=== PATIENT | female | born 1990 | race Caucasian/White ===

== ENCOUNTER 2016-05-15 06:39 | Day surgery (SDC) | payer OTHER, MEDICAID ==
[~2016-05-15] VITALS: Ht 162.6 cm; Wt 93.9 kg
[2016-05-15] MEDS ORDERED: XANAX1 MG PO (07:22)
[2016-05-15 07:35] VITALS: BP 101/57; Ht 162.6 cm; Wt 93.9 kg
[2016-05-15 08:18] LABS: HCG URINE NEGATIVE (NEGATIVE)
[2016-05-15 09:02] LABS: HEMOGLOBIN 12.9 g/dL (12-16); MCH 29.8 pg (26.0-34.0); MCHC 33.1 g/dL (31.0-37.0); MCV 90.1 fL (80.0-100.0); MEAN PLATELET VOLUME 9.8 fL (7.4-10.4); RBC 4.33 10x6/uL (4.00-5.40); RDW 12.6 % (11.5-14.5); WBC 7.3 10x3/uL (4.8-10.8)
[2016-05-15] MEDS ORDERED: HYDROCODONE-APA1 TAB PO (10:52)
--- NOTE | 2016-05-15 12:50 | NUR ---
DISCHARGE INSTRUCTIONS AND RX GIVEN, VOICED UNDERSTANDING. DISCHARGED HOME VIA WC.
--- NOTE | 2016-05-15 16:25 | OP ---
PATIENT NAME: MAMADOU OSORIO MEDICAL RECORD: [id number] :92 LOCATION:D.OPS ADMISSION DATE: SURGEON: CHAPIN SANTOS MD DATE OF OPERATION: 05/15/2016 PREOPERATIVE DIAGNOSES: 1. Gallstones. 2. Kidney stones. 3. Tobacco dependence syndrome. POSTOPERATIVE DIAGNOSES: 1. Gallstones. 2. Kidney stones. 3. Tobacco dependence syndrome. PROCEDURE: Laparoscopic cholecystectomy. SURGEON: Chapin Santos MD REPORT OF PROCEDURE: The patient's abdomen was prepped and draped in a sterile fashion. A cutdown was made on the superior aspect of the umbilicus, 0 Vicryls were placed in the fascia bilaterally and the fascia was incised with 15-blade. I then bluntly entered the peritoneal cavity and placed a 12-mm Wily port. Under direct visualization, a 5 mm trocar was placed in the epigastrium and 2 more 5-mm trocars were placed in the right subcostal region. The gallbladder was grasped and elevated. There was no sign of any inflammatory changes. The cystic artery and cystic duct were dissected free and these were clipped proximally and distally and ligated in standard fashion. The gallbladder was taken off the liver bed using electrocautery and placed in the right upper quadrant. Any bleeding from the liver bed was then treated with electrocautery. At this point, the ports and insufflation were then removed and the gallbladder was taken out through the umbilicus. The umbilical fascia was closed with interrupted 0 Vicryls times 3. The wounds were then irrigated out with normal saline and infused with 10 mL of 0.25% Marcaine with epinephrine. The skin incisions were all closed with subcutaneous 5-0 Monocryl and dressed appropriately. COMPLICATIONS: None. CONDITION: Stable. ANESTHESIA: General endotracheal and local. BLOOD LOSS: Minimal. TRANSINT:[id number] Voice Confirmation ID: [id number] DOCUMENT ID: [id number] OPERATIVE REPORT [id number] MAMADOU OSORIO CHRISTIAN MD at 1625 CC: HIREN WOMACK DO [id number] DICTATION DATE: 05/15/16 1056 EXERCISE EQUIPMENT REPAIR TECHNICIAN: 05/15/16 1607 [facility] 05/15/16 [place] [id number] [place] [id number]
== END 2016-05-15 12:50 | disposition home or self-care (01) ==
LOC: D.OPS 06:39
PROVIDERS: Anesthesiology; Surgery
DX: K80.20 Calculus of gallbladder without cholecystitis without obstruction (principal); N20.0 Calculus of kidney; F17.200 Nicotine dependence, unspecified, uncomplicated

== ENCOUNTER → 2016-07-31 19:39 | Outpatient (CLI) | payer OTHER, MEDICAID ==
[2016-05-15 07:35] VITALS: BMI 35.6
[~2016-07-31 19:39] MED LIST: HYDROCODONE-APA1 TAB PO; XANAX1 MG PO
== END | disposition home or self-care (01) ==
LOC: D.LABREF 19:39
DX: Z12.4 Encounter for screening for malignant neoplasm of cervix (principal)

== ENCOUNTER → 2016-08-03 09:07 | Outpatient (CLI) | payer OTHER, MEDICAID ==
[2016-05-15 07:35] VITALS: BMI 35.6
== END | disposition home or self-care (01) ==
LOC: D.LABREF 09:07
DX: Z12.4 Encounter for screening for malignant neoplasm of cervix (principal)

== ENCOUNTER → 2016-08-11 08:32 | Outpatient (CLI) | payer OTHER, MEDICAID ==
[2016-05-15 07:35] VITALS: BMI 35.6
== END | disposition home or self-care (01) ==
LOC: D.US 08:32
DX: N85.2 Hypertrophy of uterus (principal); N63 Unspecified lump in breast

== ENCOUNTER → 2016-09-02 18:39 | Outpatient (CLI) | payer OTHER, BC ==
[2016-05-15 07:35] VITALS: BMI 35.6
== END | disposition home or self-care (01) ==
LOC: D.LABREF 18:39
DX: Z32.01 Encounter for pregnancy test, result positive (principal)

== ENCOUNTER 2016-09-21 14:54 | Emergency (ER) | payer MEDICAID ==
[2016-05-15 07:35] VITALS: BMI 35.6
[2016-09-21 16:24] LABS: BASOPHILS 0.2 % (0-2); EOSINOPHILS 1.4 % (0-7); HEMATOCRIT 44.3 % (36.0-48.0); HEMOGLOBIN 14.8 g/dL (12-16); IMMATURE GRANULOCYTES 0.2 % (0-5); LYMPHOCYTES 24.2 % (15-50); MCH 30.3 pg (26.0-34.0); MCHC 33.4 g/dL (31.0-37.0); MCV 90.6 fL (80.0-100.0); MEAN PLATELET VOLUME 9.7 fL (7.4-10.4); PLATELET COUNT 397 10x3/uL (130-400); RBC 4.89 10x6/uL (4.00-5.40); RDW 12.9 % (11.5-14.5); WBC 9.8 10x3/uL (4.8-10.8)
[2016-09-21 16:38] LABS: APPEARANCE HAZY (CLEAR); BILIRUBIN NEGATIVE (NEGATIVE); COLOR YELLOW (YELLOW); GLUCOSE NEGATIVE (NEGATIVE); KETONE NEGATIVE (NEGATIVE); LEUKOCYTE ESTERASE TRACE (NEGATIVE); NITRITE NEGATIVE (NEGATIVE); PROTEIN NEGATIVE (NEGATIVE); UROBILINOGEN NORMAL (NORMAL)
[2016-09-21 16:39] LABS: BACTERIA FEW /hpf (NONE SEEN); EPITHELIAL CELLS 0-5 /hpf (0-5); RED CELLS - URINE OCC /hpf (0-5); WHITE CELLS - URINE 0-5 /hpf (0-5)
[2016-09-21 16:53] LABS: HCG SERUM NEGATIVE (NEGATIVE)
== END 2016-09-21 19:18 | disposition home or self-care (01) ==
LOC: D.ER 14:54
PROVIDERS: Emergency Medicine
DX: O26.91 Pregnancy related conditions, unspecified, first trimester (principal); N36.8 Other specified disorders of urethra; R10.9 Unspecified abdominal pain

== ENCOUNTER 2017-01-03 00:42 | Emergency (ER) | payer SELFPAY ==
[2016-05-15 07:35] VITALS: BMI 35.6
[2017-01-03 01:13] LABS: BASOPHILS 0.3 % (0-2); EOSINOPHILS 3.3 % (0-7); HEMATOCRIT 39.2 % (36.0-48.0); HEMOGLOBIN 13.4 g/dL (12-16); IMMATURE GRANULOCYTES 0.3 % (0-5); LYMPHOCYTES 45.9 % (15-50); MCH 30.9 pg (26.0-34.0); MCHC 34.2 g/dL (31.0-37.0); MCV 90.5 fL (80.0-100.0); MEAN PLATELET VOLUME 9.5 fL (7.4-10.4); MONOCYTES 6.3 % (2-11); NEUTROPHILS 43.9 % (40-80); PLATELET COUNT 363 10x3/uL (130-400); RBC 4.33 10x6/uL (4.00-5.40); RDW 12.8 % (11.5-14.5); WBC 7.4 10x3/uL (4.8-10.8)
[2017-01-03 01:33] LABS: ALBUMIN 3.2 g/dL (3.4-5.0); ALKALINE PHOSPHATASE 67 U/L (46-116); ALT (SGPT) 20 U/L (10-68); BILIRUBIN - TOTAL 0.09 mg/dL (0.2-1.3); CALC OSMOLALITY 271 mosm/kg (275-300); CALCIUM 8.2 mg/dL (8.5-10.1); CARBON DIOXIDE 24.5 mmol/L (21.0-32.0); CHLORIDE - SERUM 106 mmol/L (98-107); CREATININE - SERUM 0.8 mg/dL (0.6-1.3); GLUCOSE 90 mg/dL (74-106); POTASSIUM - SERUM 3.7 mmol/L (3.5-5.1); PROTEIN - SERUM 6.5 g/dL (6.4-8.2); SODIUM 137 mmol/L (136-145); UREA NITROGEN 8 mg/dL (7-18); eGFR NON AFRICAN AMERICAN > 90 mL/min (90-120)
[2017-01-03 01:38] LABS: THYROID STIMULATING HORMONE 1.66 uIU/mL (0.36-3.74)
[2017-01-03 01:39] LABS: C-REACTIVE PROTEIN 0.2 mg/dL (0.0-0.9)
[2017-01-03 01:52] LABS: HCG URINE NEGATIVE (NEGATIVE)
[2017-01-03 01:56] LABS: APPEARANCE HAZY (CLEAR); COLOR YELLOW (YELLOW)
[2017-01-03 01:57] LABS: BACTERIA NONE SEEN /hpf (NONE SEEN); BILIRUBIN NEGATIVE (NEGATIVE); GLUCOSE NEGATIVE (NEGATIVE); KETONE NEGATIVE (NEGATIVE); LEUKOCYTE ESTERASE TRACE (NEGATIVE); NITRITE NEGATIVE (NEGATIVE); PROTEIN NEGATIVE (NEGATIVE); RED CELLS - URINE NONE SEEN /hpf (0-5); UDS - AMPHET NEGATIVE QUAL (NEGATIVE); UDS - BARB NEGATIVE QUAL (NEGATIVE); UDS - BENZO NEGATIVE QUAL (NEGATIVE); UDS - COCAINE NEGATIVE QUAL (NEGATIVE); UDS - METH NEGATIVE QUAL (NEGATIVE); UDS - OPIATE POSITIVE QUAL (NEGATIVE); UDS - PCP NEGATIVE QUAL (NEGATIVE); UDS - THC POSITIVE QUAL (NEGATIVE); UROBILINOGEN NORMAL (NORMAL)
== END 2017-01-03 02:50 | disposition home or self-care (01) ==
LOC: D.ER 00:42
PROVIDERS: Family Medicine
DX: R42 Dizziness and giddiness (principal)

== ENCOUNTER 2017-03-06 09:41 | Emergency (ER) | payer OTHER, MEDICAID ==
[2016-05-15 07:35] VITALS: BMI 35.6
[2017-04-23] MEDS ORDERED: PROZAC20 MG PO (11:34)
== END 2017-03-06 12:28 | disposition home or self-care (01) ==
LOC: D.ER 09:41
DX: J02.9 Acute pharyngitis, unspecified (principal); J20.9 Acute bronchitis, unspecified; F98.8 Other specified behavioral and emotional disorders with onset usually occurring in childhood and adolescence

== ENCOUNTER 2017-04-17 03:26 | Emergency (ER) | payer OTHER, BC ==
[2016-05-15 07:35] VITALS: BMI 35.6
[2017-04-17 04:13] LABS: BASOPHILS 0.2 % (0-2); HEMATOCRIT 42.7 % (36.0-48.0); HEMOGLOBIN 14.8 g/dL (12-16); IMMATURE GRANULOCYTES 0.2 % (0-5); LYMPHOCYTES 24.4 % (15-50); MCH 30.5 pg (26.0-34.0); MCHC 34.7 g/dL (31.0-37.0); MEAN PLATELET VOLUME 9.7 fL (7.4-10.4); MONOCYTES 6.1 % (2-11); NEUTROPHILS 68.1 % (40-80); PLATELET COUNT 468 10x3/uL (130-400); RBC 4.85 10x6/uL (4.00-5.40); RDW 12.7 % (11.5-14.5); WBC 13.5 10x3/uL (4.8-10.8)
[2017-04-17 04:21] LABS: ALBUMIN 4.3 g/dL (3.4-5.0); ALKALINE PHOSPHATASE 78 U/L (46-116); ALT (SGPT) 20 U/L (10-68); BILIRUBIN - TOTAL 0.34 mg/dL (0.2-1.3); CALC OSMOLALITY 280 mosm/kg (275-300); CALCIUM 9.6 mg/dL (8.5-10.1); CHLORIDE - SERUM 101 mmol/L (98-107); CREATININE - SERUM 0.9 mg/dL (0.6-1.3); LIPASE 170 U/L (73-393); POTASSIUM - SERUM 3.2 mmol/L (3.5-5.1); SODIUM 141 mmol/L (136-145); UREA NITROGEN 8 mg/dL (7-18); eGFR NON AFRICAN AMERICAN 81 mL/min (90-120)
[2017-04-17 04:28] LABS: GLUCOSE 139 mg/dL (74-106)
[2017-04-17 04:31] LABS: APPEARANCE HAZY (CLEAR); BILIRUBIN NEGATIVE (NEGATIVE); COLOR BROWN (YELLOW); GLUCOSE NEGATIVE (NEGATIVE); HCG URINE NEGATIVE (NEGATIVE); KETONE SMALL mg/dL (NEGATIVE); NITRITE NEGATIVE (NEGATIVE); PROTEIN TRACE mg/dL (NEGATIVE); SPECIFIC GRAVITY 1.015 (1.005-1.020); UROBILINOGEN NORMAL (NORMAL)
[2017-04-17 04:32] LABS: BACTERIA NONE SEEN /hpf (NONE SEEN); EPITHELIAL CELLS RARE /hpf (0-5); RED CELLS - URINE >50 /hpf (0-5); WHITE CELLS - URINE NSEEN /hpf (0-5)
[2017-04-23] MEDS ORDERED: PROZAC20 MG PO (11:34)
== END 2017-04-17 05:40 | disposition home or self-care (01) ==
LOC: D.ER 03:26
PROVIDERS: Family Medicine
DX: N20.1 Calculus of ureter (principal)

== ENCOUNTER 2017-04-26 05:52 | Day surgery (SDC) | payer OTHER, BC ==
[2017-04-23 12:05] LABS: BASOPHILS 0.3 % (0-2); EOSINOPHILS 1.3 % (0-7); HEMATOCRIT 42.9 % (36.0-48.0); HEMOGLOBIN 14.6 g/dL (12-16); LYMPHOCYTES 26.2 % (15-50); MCH 30.6 pg (26.0-34.0); MCV 89.9 fL (80.0-100.0); MEAN PLATELET VOLUME 9.7 fL (7.4-10.4); NEUTROPHILS 63.2 % (40-80); PLATELET COUNT 463 10x3/uL (130-400); RBC 4.77 10x6/uL (4.00-5.40); RDW 13.1 % (11.5-14.5); WBC 6.2 10x3/uL (4.8-10.8)
[~2017-04-26] VITALS: Ht 162.6 cm; Wt 92.5 kg
--- NOTE | ~2017-04-26 | OP ---
PATIENT NAME: MAMADOU OSORIO MEDICAL RECORD: [id number] :92 LOCATION:D.OPS ADMISSION DATE: SURGEON: BRIELLE MAGAÑA MD DATE OF OPERATION: 04/26/2017 PREOPERATIVE DIAGNOSIS: Pelvic pain. POSTOPERATIVE DIAGNOSES: 1. Pelvic pain. 2. Pelvic adhesive disease. 3. Left ovarian cyst. PROCEDURES: 1. Diagnostic laparoscopy. 2. Cystectomy. SURGEON: Brielle Magaña MD ANESTHESIOLOGIST: Dr. Tammy XIONG. ANESTHETIC: IV general. FINDINGS: A 4-cm hemorrhagic cyst noted on the left ovary. Tubes are unremarkable. The uterus is unremarkable. There are adhesions in the posterior cul-de-sac. No obvious signs of an active endometriosis is encountered. SPECIMENS REMOVED: Cyst wall. SPECIMEN DISPOSITION: Pathology. FLUIDS: 1600 cc of lactated Ringer's. URINE OUTPUT: Quantity sufficient void prior to the procedure. ESTIMATED BLOOD LOSS: Less than or equal to 50 mL. COMPLICATIONS: None. DRAINS: None. INDICATIONS: The patient is a 26-year-old female with pelvic pain and dyspareunia. The patient is consented for diagnostic laparoscopy after having failed conservative management. DESCRIPTION OF PROCEDURE: After informed consent was assured, the patient was taken to the operating room where anesthetic was obtained. The patient was prepped and draped in usual sterile fashion. An incision was made in the umbilicus and a 5-mm trocar was inserted. Pneumoperitoneum was now developed. Accessory ports were placed in the midline and right lower quadrant. Blunt probe was used to sweep the bowel free the pelvis with the above findings. A monopolar Bovie cautery hook was inserted and the capsule incised. Using graspers, the cyst wall was extracted. With persistent bleeding along the edges of the cyst wall, bipolar paddles on a Myxer Gyrus was used to obtain hemostasis here. After copiously irrigating the pelvis, irrigant removed and the surgical sites inspected and found to be hemostatic. Interceed was placed OPERATIVE REPORT [id number] MAMADOU OSORIO over the operative field. Pneumoperitoneum was now released and the accessory trocars were removed under direct visualization. Primary trocar was now removed. All skin sites were closed with the Monocryl stitch and Dermabond applied. Sponge, lap, and needle count is correct times 2. The patient went to recovery room in stable condition. TRANSINT:[id number] Voice Confirmation ID: [id number] DOCUMENT ID: [id number] BRIELLE MAGAÑA MD at 0034 CC: [id number] DICTATION DATE: 04/26/17924 DRUM CLEANER: 04/26/17 1359 [facility] 04/26/17 [place] [id number] [place] [id number]
[~2017-04-26 05:52] MED LIST changes: +PROZAC20 MG PO
[2017-04-26 06:57] VITALS: BP 116/61; Ht 162.6 cm; Wt 92.5 kg
[2017-04-26 07:14] LABS: HCG URINE NEGATIVE (NEGATIVE)
== END 2017-04-26 11:34 | disposition home or self-care (01) ==
LOC: D.OPS 05:52 → D.PAN 08:15 → D.OPS 11:34
PROVIDERS: Obstetrics & Gynecology
DX: N94.10 Unspecified dyspareunia (principal); R10.2 Pelvic and perineal pain; F17.200 Nicotine dependence, unspecified, uncomplicated; E66.9 Obesity, unspecified; Z68.35 Body mass index [BMI] 35.0-35.9, adult; Z01.812 Encounter for preprocedural laboratory examination

== ENCOUNTER 2018-04-01 12:34 | Emergency (ER) | payer OTHER ==
[~2018-04-01] VITALS: Ht 162.6 cm; Wt 96.8 kg
[2018-04-01 12:45] VITALS: Ht 162.6 cm; Wt 96.8 kg
[2018-04-01 13:37] LABS: APPEARANCE CLEAR (CLEAR); BASOPHILS 0.2 % (0-2); COLOR YELLOW (YELLOW); EOSINOPHILS 1.3 % (0-7); HEMATOCRIT 36.3 % (36.0-48.0); HEMOGLOBIN 12.7 g/dL (12-16); IMMATURE GRANULOCYTES 0.1 % (0-5); LYMPHOCYTES 25.9 % (15-50); MCH 30.5 pg (26.0-34.0); MCV 87.3 fL (80.0-100.0); MEAN PLATELET VOLUME 9.8 fL (7.4-10.4); MONOCYTES 5.9 % (2-11); NEUTROPHILS 66.6 % (40-80); NITRITE NEGATIVE (NEGATIVE); PH 6.5 (5.0-6.0); PLATELET COUNT 386 10x3/uL (130-400); RBC 4.16 10x6/uL (4.00-5.40); RDW 12.4 % (11.5-14.5); SPECIFIC GRAVITY 1.015 (1.005-1.020); WBC 8.8 10x3/uL (4.8-10.8)
[2018-04-01 13:38] LABS: BILIRUBIN NEGATIVE (NEGATIVE); GLUCOSE NEGATIVE (NEGATIVE); KETONE NEGATIVE (NEGATIVE); PROTEIN NEGATIVE (NEGATIVE); UROBILINOGEN NORMAL (NORMAL)
[2018-04-01 13:48] LABS: AMORPHOUS SEDIMENT <1+ /lpf (NONE SEEN); BACTERIA FEW /hpf (NONE SEEN); EPITHELIAL CELLS 0-5 /hpf (0-5); HYALINE CAST RARE /lpf (NONE SEEN); MUCUS <1+ /lpf (NONE SEEN); RED CELLS - URINE 0-5 /hpf (0-5); WHITE CELLS - URINE 0-5 /hpf (0-5)
[2018-04-01 13:50] LABS: HCG SERUM POSITIVE (NEGATIVE)
[2018-04-01 13:55] LABS: ALBUMIN 3.3 g/dL (3.4-5.0); ALKALINE PHOSPHATASE 63 U/L (46-116); ALT (SGPT) 26 U/L (10-68); BILIRUBIN - TOTAL 0.21 mg/dL (0.2-1.3); CALC OSMOLALITY 275 mosm/kg (275-300); CALCIUM 9.3 mg/dL (8.5-10.1); CARBON DIOXIDE 24.9 mmol/L (21.0-32.0); CHLORIDE - SERUM 102 mmol/L (98-107); CREATININE - SERUM 0.6 mg/dL (0.6-1.3); GLUCOSE 97 mg/dL (74-106); POTASSIUM - SERUM 3.3 mmol/L (3.5-5.1); PROTEIN - SERUM 7.5 g/dL (6.4-8.2); SODIUM 139 mmol/L (136-145); UREA NITROGEN 6 mg/dL (7-18); eGFR NON AFRICAN AMERICAN > 90 mL/min (90-120)
[2018-04-01 14:16] LABS: HCG - QUANTITATIVE (MATERNAL) 14515 mIU/mL
[2018-04-01 15:06] VITALS: BP 128/070
== END 2018-04-01 15:07 | disposition home or self-care (01) ==
LOC: D.ER 12:34
PROVIDERS: Family Medicine
DX: O26.891 Other specified pregnancy related conditions, first trimester (principal); Z3A.15 15 weeks gestation of pregnancy; R10.30 Lower abdominal pain, unspecified; N89.8 Other specified noninflammatory disorders of vagina; F17.200 Nicotine dependence, unspecified, uncomplicated

== ENCOUNTER → 2018-06-07 15:32 | Outpatient (CLI) | payer OTHER ==
[2018-04-01 12:45] VITALS: BMI 36.6
[2018-06-07 16:15] LABS: BASOPHILS 0.1 % (0-2); EOSINOPHILS 0.5 % (0-7); HEMATOCRIT 34.5 % (36.0-48.0); HEMOGLOBIN 11.9 g/dL (12-16); IMMATURE GRANULOCYTES 0.2 % (0-5); LYMPHOCYTES 20.1 % (15-50); MCHC 34.5 g/dL (31.0-37.0); MCV 89.8 fL (80.0-100.0); MEAN PLATELET VOLUME 10.1 fL (7.4-10.4); MONOCYTES 4.2 % (2-11); NEUTROPHILS 74.9 % (40-80); PLATELET COUNT 376 10x3/uL (130-400); RBC 3.84 10x6/uL (4.00-5.40); RDW 12.3 % (11.5-14.5); WBC 10.4 10x3/uL (4.8-10.8)
[2018-06-07 16:23] LABS: FIBRINOGEN 468 mg/dL (239-481)
[2018-06-07 16:24] LABS: APTT 33.6 SECONDS (22.8-39.4); D-DIMER-QUANTITATIVE < 0.27 ug/mLFEU (0.20-0.54); INR 1.02 (0.85-1.17); PROTIME 12.9 SECONDS (11.6-15.0)
== END | disposition home or self-care (01) ==
LOC: D.LDO 15:32
PROVIDERS: ATTEND Obstetrics & Gynecology
DX: O26.892 Other specified pregnancy related conditions, second trimester (principal); Z3A.23 23 weeks gestation of pregnancy

== ENCOUNTER → 2018-07-11 01:08 | Outpatient (CLI) | payer OTHER, MEDICAID ==
[2018-04-01 12:45] VITALS: BMI 36.6
[~2018-07-11 01:08] MED LIST changes: +PRENAVITE1 TAB PO
[2018-07-13 21:07] LABS: CHLAMYDIA TRACHOMATIS, NAA Negative (Negative)
== END | disposition home or self-care (01) ==
LOC: D.LDO 01:08
PROVIDERS: ATTEND Obstetrics & Gynecology
DX: O26.893 Other specified pregnancy related conditions, third trimester (principal); Z3A.28 28 weeks gestation of pregnancy; N89.8 Other specified noninflammatory disorders of vagina

== ENCOUNTER → 2018-07-14 10:28 | Outpatient (CLI) | payer OTHER ==
[2018-04-01 12:45] VITALS: BMI 36.6
[2018-07-14 14:15] LABS: APPEARANCE CLOUDY (CLEAR); BILIRUBIN NEGATIVE (NEGATIVE); COLOR YELLOW (YELLOW); GLUCOSE NEGATIVE (NEGATIVE); KETONE NEGATIVE (NEGATIVE); NITRITE NEGATIVE (NEGATIVE); PROTEIN TRACE mg/dL (NEGATIVE); SPECIFIC GRAVITY 1.015 (1.005-1.020); UROBILINOGEN NORMAL (NORMAL)
[2018-07-14 14:17] LABS: BACTERIA MODERATE /hpf (NONE SEEN); MUCUS >1+ /lpf (NONE SEEN); RED CELLS - URINE >50 /hpf (0-5); WHITE CELLS - URINE 0-5 /hpf (0-5)
== END | disposition home or self-care (01) ==
LOC: D.LDO 10:28
PROVIDERS: Obstetrics & Gynecology; ATTEND Obstetrics & Gynecology
DX: O26.899 Other specified pregnancy related conditions, unspecified trimester (principal); Z3A.00 Weeks of gestation of pregnancy not specified

== ENCOUNTER → 2018-07-25 14:49 | Outpatient (CLI) | payer OTHER ==
[2018-04-01 12:45] VITALS: BMI 36.6
[~2018-07-25 14:49] MED LIST changes: +PERCOCET 5-3251 TAB PO
== END | disposition home or self-care (01) ==
LOC: D.LDO 14:49
PROVIDERS: ATTEND Obstetrics & Gynecology
DX: O26.899 Other specified pregnancy related conditions, unspecified trimester (principal); M79.89 Other specified soft tissue disorders

== ENCOUNTER 2018-08-08 18:57 | Outpatient (CLI) | payer OTHER ==
[~2018-08-08 18:57] MED LIST changes: -PERCOCET 5-3251 TAB PO
[2018-08-08 20:45] LABS: APPEARANCE TURBID (CLEAR); BILIRUBIN NEGATIVE (NEGATIVE); COLOR RED (YELLOW); GLUCOSE NEGATIVE (NEGATIVE); KETONE NEGATIVE (NEGATIVE); NITRITE NEGATIVE (NEGATIVE); PROTEIN 1+ mg/dL (NEGATIVE); SPECIFIC GRAVITY 1.015 (1.005-1.020); UROBILINOGEN NORMAL (NORMAL)
[2018-08-08 20:46] LABS: EPITHELIAL CELLS 0-5 /hpf (0-5); RED CELLS - URINE >50 /hpf (0-5); WHITE CELLS - URINE OCC /hpf (0-5)
[2018-08-08 20:47] LABS: BACTERIA FEW /hpf (NONE SEEN)
[2018-08-08 22:07] LABS: BASOPHILS 0.1 % (0-2); EOSINOPHILS 0.4 % (0-7); HEMATOCRIT 30.1 % (36.0-48.0); HEMOGLOBIN 10.1 g/dL (12-16); IMMATURE GRANULOCYTES 0.2 % (0-5); LYMPHOCYTES 13.6 % (15-50); MCH 29.1 pg (26.0-34.0); MCHC 33.6 g/dL (31.0-37.0); MCV 86.7 fL (80.0-100.0); MEAN PLATELET VOLUME 10.8 fL (7.4-10.4); MONOCYTES 5.5 % (2-11); NEUTROPHILS 80.2 % (40-80); PLATELET COUNT 357 10x3/uL (130-400); RBC 3.47 10x6/uL (4.00-5.40); WBC 11.5 10x3/uL (4.8-10.8)
[2018-08-11] MEDS ORDERED: PERCOCET 5-3251 TAB PO (17:21)
[2018-08-25] MEDS ORDERED: CELEXA20 MG PO (17:10)
== END 2018-08-09 07:14 | disposition home or self-care (01) ==
LOC: D.LABREF 18:57 → D.LD 23:08
PROVIDERS: Obstetrics & Gynecology
DX: O26.893 Other specified pregnancy related conditions, third trimester (principal); Z3A.32 32 weeks gestation of pregnancy; R31.9 Hematuria, unspecified

== ENCOUNTER → 2018-08-11 13:18 | Outpatient (CLI) | payer OTHER ==
[2018-04-01 12:45] VITALS: BMI 36.6
[~2018-08-11 13:18] MED LIST changes: +PERCOCET 5-3251 TAB PO
== END | disposition home or self-care (01) ==
LOC: D.LDO 13:18
PROVIDERS: ATTEND Obstetrics & Gynecology
DX: O26.893 Other specified pregnancy related conditions, third trimester (principal); N20.0 Calculus of kidney

== ENCOUNTER → 2018-08-25 16:00 | Outpatient (CLI) | payer OTHER ==
[2018-04-01 12:45] VITALS: BMI 36.6
[~2018-08-25 16:00] MED LIST changes: +CELEXA20 MG PO
[2018-08-25 17:51] LABS: APPEARANCE HAZY (CLEAR); BILIRUBIN NEGATIVE (NEGATIVE); COLOR YELLOW (YELLOW); GLUCOSE NEGATIVE (NEGATIVE); KETONE SMALL mg/dL (NEGATIVE); NITRITE NEGATIVE (NEGATIVE); PROTEIN NEGATIVE (NEGATIVE); UROBILINOGEN NORMAL (NORMAL)
[2018-08-25 17:52] LABS: RED CELLS - URINE 0-5 /hpf (0-5); WHITE CELLS - URINE OCC /hpf (0-5)
[2018-08-25 17:53] LABS: AMORPHOUS SEDIMENT <1+ /lpf (NONE SEEN); BACTERIA FEW /hpf (NONE SEEN); EPITHELIAL CELLS 0-5 /hpf (0-5)
== END | disposition home or self-care (01) ==
LOC: D.LDO 16:00
PROVIDERS: ATTEND Obstetrics & Gynecology
DX: O26.899 Other specified pregnancy related conditions, unspecified trimester (principal); Z3A.00 Weeks of gestation of pregnancy not specified

== ENCOUNTER → 2018-09-10 20:47 | Outpatient (CLI) | payer OTHER | END | disposition home or self-care (01) | LOC: D.LDO 20:47 | DX: O26.893 Other specified pregnancy related conditions, third trimester (principal); Z3A.37 37 weeks gestation of pregnancy; R42 Dizziness and giddiness ==

== ENCOUNTER → 2018-09-13 13:39 | Outpatient (CLI) | payer OTHER ==
[2018-04-01 12:45] VITALS: BMI 36.6
[~2018-09-13 13:39] MED LIST changes: +HYDROCODON-ACE1 EAC7 PO; +IBUPROFEN800 MG PO; +MOTRIN600 MG PO
[2018-09-13 15:15] LABS: APPEARANCE HAZY (CLEAR); BILIRUBIN NEGATIVE (NEGATIVE); COLOR YELLOW (YELLOW); GLUCOSE NEGATIVE (NEGATIVE); KETONE NEGATIVE (NEGATIVE); NITRITE NEGATIVE (NEGATIVE); PROTEIN NEGATIVE (NEGATIVE); UROBILINOGEN NORMAL (NORMAL)
[2018-09-13 15:16] LABS: UDS - AMPHET NEGATIVE QUAL (NEGATIVE); UDS - BARB NEGATIVE QUAL (NEGATIVE); UDS - BENZO NEGATIVE QUAL (NEGATIVE); UDS - COCAINE NEGATIVE QUAL (NEGATIVE); UDS - OPIATE POSITIVE QUAL (NEGATIVE); UDS - PCP NEGATIVE QUAL (NEGATIVE); UDS - THC NEGATIVE QUAL (NEGATIVE); WHITE CELLS - URINE 0-5 /hpf (0-5)
[2018-09-13 15:17] LABS: BACTERIA MODERATE /hpf (NONE SEEN)
== END | disposition home or self-care (01) ==
LOC: D.LDO 13:39
PROVIDERS: ATTEND Obstetrics & Gynecology
DX: O26.893 Other specified pregnancy related conditions, third trimester (principal); Z3A.37 37 weeks gestation of pregnancy

== ENCOUNTER 2018-09-15 16:26 | Inpatient (IN) | payer OTHER ==
[~2018-09-15 16:26] MED LIST changes: -HYDROCODON-ACE1 EAC7 PO; -IBUPROFEN800 MG PO; -MOTRIN600 MG PO
[2018-09-15 17:49] LABS: HEMATOCRIT 31.7 % (36.0-48.0); HEMOGLOBIN 10.5 g/dL (12-16); MCH 27.8 pg (26.0-34.0); MCHC 33.1 g/dL (31.0-37.0); MCV 83.9 fL (80.0-100.0); MEAN PLATELET VOLUME 11.5 fL (7.4-10.4); RBC 3.78 10x6/uL (4.00-5.40); RDW 13.7 % (11.5-14.5); WBC 10.6 10x3/uL (4.8-10.8)
[2018-09-15 17:50] LABS: UDS - AMPHET NEGATIVE QUAL (NEGATIVE); UDS - BARB NEGATIVE QUAL (NEGATIVE); UDS - BENZO NEGATIVE QUAL (NEGATIVE); UDS - COCAINE NEGATIVE QUAL (NEGATIVE); UDS - OPIATE NEGATIVE QUAL (NEGATIVE); UDS - PCP NEGATIVE QUAL (NEGATIVE); UDS - THC NEGATIVE QUAL (NEGATIVE)
[2018-09-15 18:20] LABS: ALBUMIN 2.2 g/dL (3.4-5.0); ALKALINE PHOSPHATASE 173 U/L (46-116); ALT (SGPT) 15 U/L (10-68); BILIRUBIN - INDIRECT 0.12 mg/dL (0.00-1.00); BILIRUBIN - TOTAL 0.16 mg/dL (0.2-1.3); CALC OSMOLALITY 274 mosm/kg (275-300); CALCIUM 8.8 mg/dL (8.5-10.1); CARBON DIOXIDE 21.4 mmol/L (21.0-32.0); CHLORIDE - SERUM 104 mmol/L (98-107); CREATININE - SERUM 0.5 mg/dL (0.6-1.3); GLUCOSE 85 mg/dL (74-106); POTASSIUM - SERUM 3.4 mmol/L (3.5-5.1); PROTEIN - SERUM 6.7 g/dL (6.4-8.2); SODIUM 139 mmol/L (136-145); UREA NITROGEN 7 mg/dL (7-18); URIC ACID 3.7 mg/dL (2.6-7.2); eGFR NON AFRICAN AMERICAN > 90 mL/min (90-120)
[2018-09-15 18:26] LABS: BILIRUBIN - DIRECT 0.04 mg/dL (0.00-0.30)
[2018-09-15 18:30] VITALS: BP 132/80; BMI 42.3
[2018-09-17 07:19] LABS: RAPID PLASMA REAGIN Non Reactive (Non Reactive)
[2018-09-17] MEDS ORDERED: MOTRIN600 MG PO (11:44)
[2018-09-17] MEDS ORDERED: IBUPROFEN800 MG PO (11:45)
--- NOTE | 2018-09-17 21:42 | NUR ---
TORADOL 30 MG GIVEN SLOW IVP FOR C/O PERINEAL AND BACK PAIN. RATES PAIN AN 8 OF 10 ALTHOUGH CALM DEMEANOR AND WATCHING TV.
--- NOTE | 2018-09-17 22:30 | NUR ---
poc discussed with pt. Pt. informed of meds ordered. States pain is "better" since Toradol and rates as a 5 of 10 on pain scale. Oriented to new room ie, call light, bed control, thermostat etc. Pt. stated understanding to all. Pt. states that she desires Valium for sleep. Informed pt. that could also have Ambien but pt. declined stating that it gave her "restless legs."
[2018-09-17 22:34] LABS: APPEARANCE CLEAR (CLEAR); COLOR YELLOW (YELLOW); GLUCOSE NEGATIVE (NEGATIVE); NITRITE NEGATIVE (NEGATIVE); PROTEIN NEGATIVE (NEGATIVE); SPECIFIC GRAVITY 1.005 (1.005-1.020)
[2018-09-17 22:35] LABS: BILIRUBIN NEGATIVE (NEGATIVE); KETONE NEGATIVE (NEGATIVE); UROBILINOGEN NORMAL (NORMAL)
[2018-09-17 22:37] LABS: WHITE CELLS - URINE OCC /hpf (0-5)
[2018-09-17 22:38] LABS: BACTERIA FEW /hpf (NONE SEEN)
--- NOTE | 2018-09-17 22:38 | NUR ---
PT. CALLED THIS NURSE TO ROOM ASKING FOR HER VALIUM SO SHE COULD SLEEP. INFORMED PT. THAT CHIEF STEWARD/STEWARDESS HAD TO OBTAIN.
--- NOTE | 2018-09-17 22:46 | NUR ---
PT.LYING ON LT SIDE. SIDE RAILS UP X 2. CALL LIGHT WITHIN REACH. PT'S MOTHER SPENDING NIGHT WITH PT. AND LINENS SUPPLIED FOR MOTHER FOR SOFA.
--- NOTE | 2018-09-17 23:35 | NUR ---
AMBULATORY IN HALLWAY. GAIT STEADY. AMBULATED TO [facility].
--- NOTE | 2018-09-18 00:28 | NUR ---
PT. WALKING ABOUT IN ROOM WITHOUT GOWN. CHEERFUL AND STATES SHE FEELS MUCH IMPROVED. STATES SHE IS LETTING FOB HOLD BECAUSE SHE IS FEELING DROWSY. PT. ON WAY TO BATHROOM. FOB HOLDING ON SOFA.
--- NOTE | 2018-09-18 01:18 | NUR ---
AMBULATED TO DESK TO REPORT THAT SHE HAD JUST SHOWERED. REQUESTING IV TAKEN OUT. STATES THAT IT IS PAINFUL. EXPLAINED TO PT. THAT IN THE EVENT THAT HER BLOOD COUNT WAS EXTREMELY LOW SHE MIGHT HAVE TO HAVE IV RESTARTED. PT. STATES THAT SHE HAS GOOD VEINS AND WOULD LIKE CURRENT IV TAKEN OUT. [facility]UV[facility] JUICE.
--- NOTE | 2018-09-18 01:29 | NUR ---
INTO PT. ROOM. PT'S MOTHER ON SOFA HOLDING AND FOB SITTING ON SOFA. IV DISCONTINUED PER PT. REQUEST WITH INTACT CATH. TIP NOTED. PT. STATES SHE NO LONGER HAS PERINEAL BURNING AND SHE FEELS "FINE". CHEERFUL AND GAIT STEADY.
--- NOTE | 2018-09-18 01:47 | NUR ---
PT. WALKING WITH FOB. PT'S MOTHER REMAINS IN ROOM WITH . PT'S GAIT STEADY.
--- NOTE | 2018-09-18 02:00 | NUR ---
POC FOR AM CT SCAN PROVIDED TO PT. INFORMED THAT MD WANTED TO R/O KIDNEY STONE. INFORMED OF NEED TO BE NPO UNTIL TEST DONE IN AM.PT. STATED UNDERSTANDING. ICE WATER AND FOOD REMOVED FROM BEDSIDE TABLE. PT. LYING IN BED ON LT SIDE AND STATED THAT SHE PLANNED TO SLEEP. PT'S MOTHER IN ROOM AT TIME OF CONVERSATION AND ALSO AWARE OF NPO INSTRUCTIONS.
--- NOTE | 2018-09-18 03:50 | NUR ---
LYING ON LT SIDE WITH EYES CLOSED. RESPIRATIONS UNLABORED.
--- NOTE | 2018-09-18 05:28 | NUR ---
LYING ON LT SIDE WITH EYES CLOSED. RESPIRATIONS UNLABORED.
--- NOTE | 2018-09-18 06:10 | NUR ---
LAB IN ROOM TO DRAW BLOOD. TO ROOM PER N STAFF. PT. CHEERFUL AND DENIES ANY NEEDS.
[2018-09-18 06:40] LABS: BASOPHILS 0.1 % (0-2); EOSINOPHILS 0.4 % (0-7); HEMATOCRIT 28.3 % (36.0-48.0); HEMOGLOBIN 9.2 g/dL (12-16); IMMATURE GRANULOCYTES 0.4 % (0-5); LYMPHOCYTES 16.7 % (15-50); MCH 27.5 pg (26.0-34.0); MCHC 32.5 g/dL (31.0-37.0); MCV 84.7 fL (80.0-100.0); MEAN PLATELET VOLUME 11.7 fL (7.4-10.4); MONOCYTES 4.8 % (2-11); NEUTROPHILS 77.6 % (40-80); PLATELET COUNT 309 10x3/uL (130-400); RBC 3.34 10x6/uL (4.00-5.40); RDW 13.9 % (11.5-14.5); WBC 14.3 10x3/uL (4.8-10.8)
--- NOTE | 2018-09-18 07:15 | NUR ---
TO ROOM TO NOTIFY PT THAT SOMEONE FROM CT WAS IN ROUTE TO TAKE HER UPSTAIRS FOR ORDERED CT. UPON ENTERING ROOM PT APPEARS TO BE SLEEPING WITH INFANT BESIDE HER IN BED, RESPONDS TO HER NAME AND SHOULDER SLIGHTLY SHAKEN. EXPLAINED THAT CT WOULD BE HERE SOON AND SHE NEEDED TO CHANGE INTO HOSPITAL GOWN. ALSO REENFORCED THAT IS SHE IS SLEEPING THAN INFANT NEEDS TO BE IN CRIB AT BEDSIDE. INFANT TRANSFERRED TO N VIA CRIB.
--- NOTE | 2018-09-18 07:33 | NUR ---
PT BACK TO ROOM, DIETARY NOTIFIED THAT SHE MAY HAVE REGULAR DIET NOW.
--- NOTE | 2018-09-18 08:00 | NUR ---
AM ASSESSMENT COMPLETED CHARTED ON FLOWSHEET. PT RATES PAIN AT 8/10, FUNDUS FIRMS WITH MASSAGE, MODERATE LOCHIA NOTED ON JERRELL PAD. NO CLOTS WITH MASSAGE AND PT DENIES CLOTS WITH VOIDS. PT AMB AROUND ROOM AND IN HALLS WITH HER MOTHER. NURSERY NURSE BRINGS TO ROOM AND IS TALKING TO PATIENT ABOUT BREAST FEEDING.
[2018-09-18 08:04] VITALS: BP 135/78
--- NOTE | 2018-09-18 08:30 | NUR ---
PT AMB OFF UNIT WITH HER MOTHER. INFANT IN NURSERY.
--- NOTE | 2018-09-18 08:40 | NUR ---
PT BACK TO ROOM AND CALLS OUT REQUESTING BE BROUGHT TO ROOM. NURSERY NURSER NOTIFIED.
--- NOTE | 2018-09-18 10:23 | NUR ---
CT CALLED FOR RESULTS, IN DICTATION AT THIS TIME.
--- NOTE | 2018-09-18 11:45 | NUR ---
PT PROVIDED WITH ROOMING IN POLICY TO READ/REVIEW AND CALL NURSE WHEN READY TO SIGN. ADDITIONAL JERRELL PADS AND MESH BRIEFS PLACED IN BATHROOM PER PT REQUEST.
--- NOTE | 2018-09-18 12:30 | NUR ---
PT BACK TO ROOM AFTER WALKING OFF UNIT WITH HER MOTHER. INFANT IN NURSERY AT THIS TIME.
--- NOTE | 2018-09-18 12:45 | NUR ---
called to room, per patients request her script for [place] 5/325mg is given to her mother to be taken to pharmacy and filled.
--- NOTE | 2018-09-18 13:11 | NUR ---
Dr Wise given CT results over the phone, request that pt follow up with Dr Morgan for treatment of kidney stone.
[2018-09-18] MEDS ORDERED: HYDROCODON-ACE1 EAC7 PO (13:43)
--- NOTE | 2018-09-18 14:18 | NUR ---
PT CALLS OUT WITH REQUEST FOR "WHAT THEY GAVE ME LAST NIGHT FOR ANXIETY" THIS RN TO BEDSIDE FOR ASSESSMENT. PT WALKING AROUND ROOM TALKING WITH FOB, SHE DOES APPEAR TO BE UPSET BUT STATES SHE IS JUST FRUSTRATED WITH "HIM" POINTS TO FOB. IN CRIB AT BEDSIDE AT THIS TIME. REQUEST FOR LARGE CUP OF ICE ALSO.
--- NOTE | 2018-09-18 14:30 | NUR ---
PT RATES PAIN AT 7/10. MEDS GIVEN CHARTED ON EMAR. PT ALSO REQUESTING VALIUM "I TOOK IT LAST NIGHT AND WAS ABLE TO SLEEP" VERIFIED THAT PT UNDERSTOOD VALIUM WAS ANTI ANXIETY MED AND SHE STATES "I KNOW BUT IT ALSO HELPS ME RELAX"
--- NOTE | 2018-09-18 14:40 | NUR ---
VERBAL AND WRITTEN DISCHARGE INSTRUCTIONS GONE OVER WITH PT. SHE UNDERSTANDS TO TAKE OTC MOTRIN DIRECTED, AND TO CONTINUE HER CELEXA AND VITAMINS. DENIES QUESTIONS OR CONCERNS. PROVIDED WITH COPY OF ROOMING IN POLICY THAT HAS BEEN SIGNED. NURSERY NURSE CALLED TO ROOM PER PT REQUEST.
== END 2018-09-18 14:45 | disposition home or self-care (01) | DRG 807 ==
LOC: D.LD 16:26
PROVIDERS: ADMIT Obstetrics & Gynecology; ATTEND Obstetrics & Gynecology
PROC: 10D07Z6 Extraction of Products of Conception, Vacuum, Via Natural or Artificial Opening (ICD-10-PCS; principal; 2018-09-17)
PROC: 3E0P7VZ Introduction of Hormone into Female Reproductive, Via Natural or Artificial Opening (ICD-10-PCS; 2018-09-17)
PROC: 3E033VJ Introduction of Other Hormone into Peripheral Vein, Percutaneous Approach (ICD-10-PCS; 2018-09-17)
PROC: 0HQ9XZZ Repair Perineum Skin, External Approach (ICD-10-PCS; 2018-09-17)
PROC: 10907ZC Drainage of Amniotic Fluid, Therapeutic from Products of Conception, Via Natural or Artificial Opening (ICD-10-PCS; 2018-09-17)
DX: O14.04 Mild to moderate pre-eclampsia, complicating childbirth (principal); Z37.0 Single live birth; O99.334 Smoking (tobacco) complicating childbirth; Z3A.37 37 weeks gestation of pregnancy

== ENCOUNTER 2018-09-26 20:57 | Emergency (ER) | payer OTHER, MEDICAID ==
[~2018-09-26] VITALS: Ht 162.6 cm; Wt 100.0 kg
[~2018-09-26 20:57] MED LIST changes: +HYDROCODON-ACE1 EAC7 PO; +IBUPROFEN800 MG PO; +MOTRIN600 MG PO
[2018-09-26 21:02] VITALS: Ht 162.6 cm; Wt 100.0 kg
[2018-09-26] MEDS ORDERED: LASIX20 MG (21:03)
[2018-09-26 21:41] LABS: APPEARANCE CLEAR (CLEAR); BILIRUBIN NEGATIVE (NEGATIVE); COLOR YELLOW (YELLOW); GLUCOSE 100 mg/dL (NEGATIVE); KETONE NEGATIVE (NEGATIVE); NITRITE NEGATIVE (NEGATIVE); PROTEIN NEGATIVE (NEGATIVE); UROBILINOGEN NORMAL (NORMAL)
[2018-09-26 22:12] LABS: BASOPHILS 0.3 % (0-2); EOSINOPHILS 1.6 % (0-7); HEMATOCRIT 35.7 % (36.0-48.0); HEMOGLOBIN 11.8 g/dL (12-16); IMMATURE GRANULOCYTES 0.2 % (0-5); LYMPHOCYTES 25.1 % (15-50); MCHC 33.1 g/dL (31.0-37.0); MCV 84.8 fL (80.0-100.0); MEAN PLATELET VOLUME 9.3 fL (7.4-10.4); MONOCYTES 5.3 % (2-11); NEUTROPHILS 67.5 % (40-80); RBC 4.21 10x6/uL (4.00-5.40); RDW 13.9 % (11.5-14.5); WBC 11.7 10x3/uL (4.8-10.8)
[2018-09-26 22:18] LABS: ALBUMIN 3.1 g/dL (3.4-5.0); ALKALINE PHOSPHATASE 148 U/L (46-116); ALT (SGPT) 23 U/L (10-68); BILIRUBIN - TOTAL 0.13 mg/dL (0.2-1.3); CALC OSMOLALITY 277 mosm/kg (275-300); CARBON DIOXIDE 27.1 mmol/L (21.0-32.0); CHLORIDE - SERUM 101 mmol/L (98-107); CREATININE - SERUM 0.7 mg/dL (0.6-1.3); GLUCOSE 90 mg/dL (74-106); POTASSIUM - SERUM 3.6 mmol/L (3.5-5.1); SODIUM 140 mmol/L (136-145); UREA NITROGEN 11 mg/dL (7-18); eGFR NON AFRICAN AMERICAN > 90 mL/min (90-120)
[2018-09-26 22:22] LABS: PLATELET COUNT 578 10x3/uL (130-400)
[2018-09-26] MEDS ORDERED: AUGMENTIN 875-11 TAB PO (23:41)
[2018-09-26] MEDS ORDERED: NAPROSYN500 MG PO (23:41)
[2018-09-26 23:54] VITALS: BP 140/87
== END 2018-09-26 23:54 | disposition home or self-care (01) ==
LOC: D.ER 20:57
PROVIDERS: Family Medicine
DX: M54.30 Sciatica, unspecified side (principal)

== ENCOUNTER 2018-09-27 15:55 | Emergency (ER) | payer OTHER, MEDICAID ==
[~2018-09-27] VITALS: Ht 162.6 cm; Wt 100.0 kg
[~2018-09-27 15:55] MED LIST changes: +AUGMENTIN 875-11 TAB PO; +LASIX20 MG; +NAPROSYN500 MG PO
[2018-09-27 16:01] VITALS: Ht 162.6 cm; Wt 100.0 kg
[2018-09-27 16:33] LABS: BASOPHILS 0.2 % (0-2); EOSINOPHILS 1.4 % (0-7); HEMATOCRIT 34.7 % (36.0-48.0); HEMOGLOBIN 11.5 g/dL (12-16); IMMATURE GRANULOCYTES 0.1 % (0-5); MCH 27.8 pg (26.0-34.0); MCHC 33.1 g/dL (31.0-37.0); MCV 83.8 fL (80.0-100.0); MEAN PLATELET VOLUME 9.2 fL (7.4-10.4); MONOCYTES 4.4 % (2-11); NEUTROPHILS 69.9 % (40-80); PLATELET COUNT 524 10x3/uL (130-400); RBC 4.14 10x6/uL (4.00-5.40); RDW 13.8 % (11.5-14.5); WBC 10.3 10x3/uL (4.8-10.8)
[2018-09-27 16:53] LABS: ALBUMIN 3.1 g/dL (3.4-5.0); ALKALINE PHOSPHATASE 149 U/L (46-116); ALT (SGPT) 18 U/L (10-68); BILIRUBIN - TOTAL 0.19 mg/dL (0.2-1.3); CALC OSMOLALITY 277 mosm/kg (275-300); CALCIUM 9.1 mg/dL (8.5-10.1); CARBON DIOXIDE 25.2 mmol/L (21.0-32.0); CHLORIDE - SERUM 102 mmol/L (98-107); CREATININE - SERUM 0.7 mg/dL (0.6-1.3); GLUCOSE 95 mg/dL (74-106); POTASSIUM - SERUM 3.7 mmol/L (3.5-5.1); PROTEIN - SERUM 7.6 g/dL (6.4-8.2); SODIUM 140 mmol/L (136-145); UREA NITROGEN 10 mg/dL (7-18); eGFR NON AFRICAN AMERICAN > 90 mL/min (90-120)
[2018-09-27 17:57] VITALS: BP 115/74
== END 2018-09-27 17:58 | disposition home or self-care (01) ==
LOC: D.ER 15:55
PROVIDERS: Family Medicine
DX: O72.1 Other immediate postpartum hemorrhage (principal)

== ENCOUNTER → 2018-10-28 12:31 | Outpatient (CLI) | payer OTHER, MEDICAID ==
[2018-09-27 16:01] VITALS: BMI 37.8
== END | disposition home or self-care (01) ==
LOC: D.RAD 12:31
PROVIDERS: ATTEND Urology
DX: N20.1 Calculus of ureter (principal)

== ENCOUNTER 2018-11-10 10:21 | Day surgery (SDC) | payer OTHER, MEDICAID ==
[~2018-11-10] VITALS: Ht 162.6 cm; Wt 105.7 kg
[2018-11-10 11:00] LABS: HEMATOCRIT 39.8 % (36.0-48.0); HEMOGLOBIN 13.2 g/dL (12-16); MCHC 33.2 g/dL (31.0-37.0); MCV 84.3 fL (80.0-100.0); MEAN PLATELET VOLUME 9.6 fL (7.4-10.4); RBC 4.72 10x6/uL (4.00-5.40); RDW 15.1 % (11.5-14.5); WBC 5.9 10x3/uL (4.8-10.8)
[2018-11-10 11:23] VITALS: BP 110/67; Ht 162.6 cm; Wt 105.7 kg
[2018-11-10 11:37] LABS: HCG URINE NEGATIVE (NEGATIVE)
[2018-11-10] MEDS ORDERED: VALIUM5 MG PO (13:19)
[2018-11-10] MEDS ORDERED: PRENAVITE1 TAB PO (13:20)
--- NOTE | 2018-11-10 13:20 | NUR ---
1300 PT CRYING. SAYS SHE IS HUNGRY AND MISSING HER BABY. STATES SHE WANTS TO GO HOME. PT DECIDED TO STAY FOR SURGERY AFTER REALISING THAT SHE MAY HAVE TO RETURN TO ED FOR KIDNEY STONE COMPLICATIONS. TOLD PT I WOULD SPEAK WITH ANESTHESIA ABOUT GETTING HER A VALIUM WHICH SHE TAKES AT HOME FOR ANXIETY. SHE IS IN AGREEMENT WITH THIS PLAN OF ACTION. A FAMILY MEMBER IS BRINGING THE BABY TO HOSPITAL FOR HER TO SEE. PT IS 7 WEEKS .
--- NOTE | 2018-11-11 09:11 | OP ---
PATIENT NAME: MAMADOU OSORIO MEDICAL RECORD: [id number] :92 LOCATION:D.OPS ADMISSION DATE: SURGEON: JEREMI ONEIL MD DATE OF OPERATION: 11/10/2018 SURGEON: Jeremi Oneil MD ANESTHESIA: General anesthesia by Eamon Rosario CRNA DIAGNOSIS: Left renal stone, 9 x 8 mm. PROCEDURES: Cystoscopy, left ureteral stent insertion 6-Guyanese x 22 cm with string attached, and left ESWL times 3000 shocks. FINDINGS: Radiodense lower pole renal stone. BLOOD LOSS: Minimal. CLINICAL HISTORY: This is a 28-year-old female who appeared with a 9 x 8 mm stone in the UP junction on the CT scan. The latest KUB shows that the stone is still in the kidney. It is radiodense. She is here to have cystoscopy, left ureteral stent insertion, and left lithotripsy. I gave her pain medications and a script for Flomax. She is almost out of the pain medications now. SHE IS ALLERGIC TO PEANUTS, SULFA, ATIVGA, AND BUSPAR. She was given Ancef on-call to the OR. DESCRIPTION OF PROCEDURE: The patient was given induction of general anesthesia in supine position. She was then placed into lithotomy position and prepped and draped. Cystoscopy was performed using a 21-Guyanese cystoscope. The stone was visualized on fluoroscopy. It is radiodense. A Sensor wire was inserted into the left ureteral orifice and up to the left renal pelvis. Over the wire, we inserted the 6-Guyanese x 22-cm ureteral stent. Once the stent was in correct position, the wire was entirely withdrawn. The distal end of the stent was pushed into the bladder using a pusher. The bladder was then emptied through the cystoscope sheath and the scope was removed. The string hangs out of the urethra. It was taped to the suprapubic region with a small patch of Tegaderm. The excess length beyond the Tegaderm was cut off. We then targeted the stone in 2 planes. 3000 shocks were given to the stone and it was seen to break up completely. I will see the patient back in follow up in 2 weeks' time with a KUB. If the patient is stone free at that time, then the stent will be removed by pulling on the string. TRANSINT:[id number] Voice Confirmation ID: [id number] DOCUMENT ID: [id number] JEREMI ONEIL MD at 0911 CC: [id number] DICTATION DATE: 11/10/18 1530 CANCELING MACHINE OPERATOR: 11/10/18 1713 [facility] 11/10/18 [place] [id number] [place] [address]
== END 2018-11-10 16:55 | disposition home or self-care (01) ==
LOC: D.OPS 10:21 → D.PAN 12:55 → D.OPS 14:30
PROVIDERS: Anesthesiology; ATTEND Urology
DX: N20.0 Calculus of kidney (principal); Z88.2 Allergy status to sulfonamides; Z88.8 Allergy status to other drugs, medicaments and biological substances; Z01.812 Encounter for preprocedural laboratory examination

== ENCOUNTER → 2018-11-22 09:55 | Outpatient (CLI) | payer OTHER, MEDICAID ==
[2018-11-10 11:23] VITALS: BMI 40.1
[~2018-11-22 09:55] MED LIST changes: +VALIUM5 MG PO
== END | disposition home or self-care (01) ==
LOC: D.RAD 09:55
PROVIDERS: ATTEND Urology
DX: N20.0 Calculus of kidney (principal)

== ENCOUNTER 2019-02-24 14:29 | Emergency (ER) | payer MEDICAID ==
[~2019-02-24] VITALS: Ht 162.6 cm; Wt 100.0 kg
[2019-02-24 14:32] VITALS: Ht 162.6 cm; Wt 100.0 kg
[2019-02-24 14:58] LABS: HEMATOCRIT 39.7 % (36.0-48.0); HEMOGLOBIN 13.3 g/dL (12-16); MCH 28.9 pg (26.0-34.0); MCHC 33.5 g/dL (31.0-37.0); MCV 86.1 fL (80.0-100.0); MEAN PLATELET VOLUME 9.3 fL (7.4-10.4); NEUTROPHILS 72.8 % (40-80); PLATELET COUNT 418 10x3/uL (130-400); RBC 4.61 10x6/uL (4.00-5.40); RDW 13.9 % (11.5-14.5); WBC 8.4 10x3/uL (4.8-10.8)
[2019-02-24 15:06] LABS: CALC OSMOLALITY 278 mosm/kg (275-300); CALCIUM 9.2 mg/dL (8.5-10.1); CARBON DIOXIDE 25.1 mmol/L (21.0-32.0); CHLORIDE - SERUM 104 mmol/L (98-107); CREATININE - SERUM 0.8 mg/dL (0.6-1.3); GLUCOSE 105 mg/dL (74-106); POTASSIUM - SERUM 3.4 mmol/L (3.5-5.1); SODIUM 141 mmol/L (136-145); UREA NITROGEN 6 mg/dL (7-18); eGFR NON AFRICAN AMERICAN > 90 mL/min (90-120)
[2019-02-24 15:42] LABS: ALBUMIN 4.1 g/dL (3.4-5.0); ALKALINE PHOSPHATASE 85 U/L (46-116); ALT (SGPT) 29 U/L (10-68); BILIRUBIN - TOTAL 0.38 mg/dL (0.2-1.3); HCG - QUANTITATIVE (MATERNAL) 15515 mIU/mL; PROTEIN - SERUM 8.2 g/dL (6.4-8.2)
[2019-02-24 16:11] LABS: APPEARANCE CLEAR (CLEAR); BILIRUBIN NEGATIVE (NEGATIVE); COLOR YELLOW (YELLOW); GLUCOSE NEGATIVE (NEGATIVE); KETONE SMALL mg/dL (NEGATIVE); NITRITE NEGATIVE (NEGATIVE); PROTEIN NEGATIVE (NEGATIVE); SPECIFIC GRAVITY 1.015 (1.005-1.020); UROBILINOGEN NORMAL (NORMAL)
[2019-02-24 16:12] LABS: EPITHELIAL CELLS 0-5 /hpf (0-5); RED CELLS - URINE 0-5 /hpf (0-5); WHITE CELLS - URINE 0-5 /hpf (NEGATIVE)
[2019-02-24 16:13] LABS: BACTERIA MODERATE /hpf (NEGATIVE); MUCUS <1+ /lpf (NONE SEEN)
[2019-02-24 16:40] VITALS: BP 150/92
== END 2019-02-24 16:40 | disposition home or self-care (01) ==
LOC: D.ER 14:29
PROVIDERS: Family Medicine
DX: O20.0 Threatened abortion (principal); Z3A.01 Less than 8 weeks gestation of pregnancy; O16.1 Unspecified maternal hypertension, first trimester

== ENCOUNTER → 2019-07-31 15:44 | Outpatient (CLI) | payer MEDICAID ==
[2019-02-24 14:32] VITALS: BMI 37.8
== END | disposition home or self-care (01) ==
LOC: D.LDO 15:44
PROVIDERS: ATTEND Obstetrics & Gynecology
DX: O36.8190 Decreased fetal movements, unspecified trimester, not applicable or unspecified (principal); Z3A.00 Weeks of gestation of pregnancy not specified

== ENCOUNTER 2019-08-20 09:50 | Outpatient (CLI) | payer MEDICAID ==
[2019-02-24 14:32] VITALS: BMI 37.8
[2019-08-20 11:29] LABS: BILIRUBIN NEGATIVE (NEGATIVE); GLUCOSE NEGATIVE (NEGATIVE); KETONE NEGATIVE (NEGATIVE); NITRITE NEGATIVE (NEGATIVE); SPECIFIC GRAVITY 1.005 (1.005-1.020); UROBILINOGEN NORMAL (NORMAL)
[2019-08-20 11:30] LABS: BACTERIA FEW /hpf (NEGATIVE); EPITHELIAL CELLS 0-5 /hpf (0-5); WHITE CELLS - URINE 0-5 /hpf (NEGATIVE)
== END 2019-08-20 14:18 | disposition home or self-care (01) ==
LOC: D.LDO 09:50
PROVIDERS: ATTEND Student in an Organized Health Care Education/Training Program
DX: O26.899 Other specified pregnancy related conditions, unspecified trimester (principal); Z3A.00 Weeks of gestation of pregnancy not specified; R52 Pain, unspecified

== ENCOUNTER 2019-09-10 15:48 | Emergency (ER) | payer MEDICAID ==
[2019-02-24 14:32] VITALS: Ht 162.6 cm; Wt 95.9 kg
[~2019-09-10] VITALS: Ht 162.6 cm; Wt 95.9 kg
[2019-09-10 16:35] LABS: BASOPHILS 0.1 % (0-2); EOSINOPHILS 0 % (0-7); HEMATOCRIT 36.3 % (36.0-48.0); HEMOGLOBIN 12.3 g/dL (12-16); IMMATURE GRANULOCYTES 0.5 % (0-5); LYMPHOCYTES 5.8 % (15-50); MCH 30.3 pg (26.0-34.0); MCHC 33.9 g/dL (31.0-37.0); MCV 89.4 fL (80.0-100.0); MEAN PLATELET VOLUME 10.7 fL (7.4-10.4); MONOCYTES 8.4 % (2-11); NEUTROPHILS 85.2 % (40-80); RBC 4.06 10x6/uL (4.00-5.40); WBC 18.3 10x3/uL (4.8-10.8)
[2019-09-10 16:37] LABS: PLATELET COUNT 300 10x3/uL (130-400)
[2019-09-10 16:39] LABS: BACTERIA MODERATE /hpf (NEGATIVE); BILIRUBIN NEGATIVE (NEGATIVE); EPITHELIAL CELLS 0-5 /hpf (0-5); GLUCOSE NEGATIVE (NEGATIVE); KETONE NEGATIVE (NEGATIVE); NITRITE NEGATIVE (NEGATIVE); RED CELLS - URINE 0-5 /hpf (0-5); SPECIFIC GRAVITY 1.005 (1.005-1.020); UROBILINOGEN NORMAL (NORMAL); WHITE CELLS - URINE 0-5 /hpf (NEGATIVE)
[2019-09-10 16:53] LABS: ALBUMIN 2.7 g/dL (3.4-5.0); ALKALINE PHOSPHATASE 165 U/L (30-120); ALT (SGPT) 15 U/L (10-68); BILIRUBIN - TOTAL 0.63 mg/dL (0.2-1.3); CALC OSMOLALITY 262 mosm/kg (275-300); CALCIUM 8.9 mg/dL (8.5-10.1); CHLORIDE - SERUM 98 mmol/L (98-107); CREATININE - SERUM 0.8 mg/dL (0.6-1.3); GLUCOSE 118 mg/dL (74-106); PROTEIN - SERUM 7.6 g/dL (6.4-8.2); SODIUM 132 mmol/L (136-145); UREA NITROGEN 3 mg/dL (7-18); eGFR NON AFRICAN AMERICAN > 90 mL/min (90-120)
[2019-09-10 17:03] LABS: POTASSIUM - SERUM 2.8 mmol/L (3.5-5.1)
[2019-09-10 20:10] VITALS: BP 132/74
== END 2019-09-10 20:11 | disposition home or self-care (01) ==
LOC: D.ER 15:48
PROVIDERS: Emergency Medicine
DX: R50.9 Fever, unspecified (principal); R51 Headache

== ENCOUNTER 2019-09-23 21:06 | Outpatient (CLI) | payer MEDICAID ==
[2019-09-10 15:52] VITALS: BMI 36.3
[2019-09-23 21:29] LABS: BILIRUBIN NEGATIVE (NEGATIVE); GLUCOSE NEGATIVE (NEGATIVE); KETONE NEGATIVE (NEGATIVE); NITRITE NEGATIVE (NEGATIVE); RED CELLS - URINE 0-5 /hpf (0-5); UROBILINOGEN NORMAL (NORMAL); WHITE CELLS - URINE 0-5 /hpf (NEGATIVE)
[2019-09-23 21:30] LABS: AMORPHOUS SEDIMENT <1+ /lpf (NONE SEEN); BACTERIA MODERATE /hpf (NEGATIVE); EPITHELIAL CELLS 0-5 /hpf (0-5)
== END 2019-09-23 23:20 | disposition home or self-care (01) ==
LOC: D.LDO 21:06
PROVIDERS: ATTEND Obstetrics & Gynecology
DX: O26.893 Other specified pregnancy related conditions, third trimester (principal); Z3A.36 36 weeks gestation of pregnancy; N85.8 Other specified noninflammatory disorders of uterus

== ENCOUNTER → 2019-09-25 10:17 | Outpatient (CLI) | payer MEDICAID ==
[2019-09-10 15:52] VITALS: BMI 36.3
== END | disposition home or self-care (01) ==
LOC: D.US 10:17
PROVIDERS: ATTEND Obstetrics & Gynecology
DX: Z34.90 Encounter for supervision of normal pregnancy, unspecified, unspecified trimester (principal)

== ENCOUNTER 2019-10-01 14:24 | Outpatient (CLI) | payer MEDICAID ==
[2019-09-10 15:52] VITALS: BMI 36.3
[2019-10-01 15:01] LABS: BACTERIA MANY /hpf (NEGATIVE); BILIRUBIN NEGATIVE (NEGATIVE); GLUCOSE NEGATIVE (NEGATIVE); KETONE NEGATIVE (NEGATIVE); NITRITE NEGATIVE (NEGATIVE); SPECIFIC GRAVITY 1.005 (1.005-1.020); UROBILINOGEN NORMAL (NORMAL)
== END 2019-10-01 17:18 | disposition home or self-care (01) ==
LOC: D.LDO 14:24
PROVIDERS: ATTEND Student in an Organized Health Care Education/Training Program
DX: O26.899 Other specified pregnancy related conditions, unspecified trimester (principal); Z3A.00 Weeks of gestation of pregnancy not specified; N85.8 Other specified noninflammatory disorders of uterus

== ENCOUNTER → 2019-10-03 14:38 | Outpatient (CLI) | payer MEDICAID ==
[2019-09-10 15:52] VITALS: BMI 36.3
[~2019-10-03 14:38] MED LIST changes: +KEFLEX500 MG PO; +TYLENOL #4 W/CO1 TAB PO
[2019-10-03 15:40] LABS: BILIRUBIN NEGATIVE (NEGATIVE); GLUCOSE NEGATIVE (NEGATIVE); KETONE NEGATIVE (NEGATIVE); NITRITE NEGATIVE (NEGATIVE); UROBILINOGEN NORMAL (NORMAL)
[2019-10-03 15:42] LABS: BACTERIA MODERATE /hpf (NEGATIVE); EPITHELIAL CELLS 0-5 /hpf (0-5); RED CELLS - URINE 0-5 /hpf (0-5); WHITE CELLS - URINE 0-5 /hpf (NEGATIVE)
[2019-10-03 15:43] LABS: UDS - AMPHET NEGATIVE QUAL (NEGATIVE); UDS - BARB NEGATIVE QUAL (NEGATIVE); UDS - BENZO NEGATIVE QUAL (NEGATIVE); UDS - COCAINE NEGATIVE QUAL (NEGATIVE); UDS - OPIATE POSITIVE QUAL (NEGATIVE); UDS - PCP NEGATIVE QUAL (NEGATIVE); UDS - THC POSITIVE QUAL (NEGATIVE)
== END | disposition home or self-care (01) ==
LOC: D.LDO 14:38
PROVIDERS: ATTEND Obstetrics & Gynecology
DX: O26.893 Other specified pregnancy related conditions, third trimester (principal); Z3A.38 38 weeks gestation of pregnancy; N85.8 Other specified noninflammatory disorders of uterus

== ENCOUNTER 2019-10-04 19:52 | Inpatient (IN) | payer MEDICAID ==
[~2019-10-04] VITALS: Ht 162.6 cm; Wt 100.5 kg
[~2019-10-04 19:52] MED LIST changes: -KEFLEX500 MG PO; -TYLENOL #4 W/CO1 TAB PO
[2019-10-04 21:12] LABS: HEMATOCRIT 34.4 % (36.0-48.0); HEMOGLOBIN 11.5 g/dL (12-16); MCH 30.2 pg (26.0-34.0); MCHC 33.4 g/dL (31.0-37.0); MCV 90.3 fL (80.0-100.0); MEAN PLATELET VOLUME 10.9 fL (7.4-10.4); RBC 3.81 10x6/uL (4.00-5.40); RDW 13.6 % (11.5-14.5); WBC 9.1 10x3/uL (4.8-10.8)
[2019-10-05] MEDS ORDERED: KEFLEX500 MG PO (03:09)
[2019-10-05] MEDS ORDERED: TYLENOL #4 W/CO1 TAB PO (03:12)
[2019-10-05 03:45] VITALS: BP 123/70; Ht 162.6 cm; Wt 100.5 kg
[2019-10-05 03:50] LABS: UDS - AMPHET NEGATIVE QUAL (NEGATIVE); UDS - BARB NEGATIVE QUAL (NEGATIVE); UDS - BENZO NEGATIVE QUAL (NEGATIVE); UDS - COCAINE NEGATIVE QUAL (NEGATIVE); UDS - OPIATE POSITIVE QUAL (NEGATIVE); UDS - PCP NEGATIVE QUAL (NEGATIVE); UDS - THC POSITIVE QUAL (NEGATIVE)
[2019-10-05 04:00] LABS: BILIRUBIN NEGATIVE (NEGATIVE); GLUCOSE NEGATIVE (NEGATIVE); KETONE NEGATIVE (NEGATIVE); NITRITE NEGATIVE (NEGATIVE); UROBILINOGEN NORMAL (NORMAL)
[2019-10-05 04:01] LABS: BACTERIA FEW /hpf (NEGATIVE); CALCIUM OXALATE CRYSTALS 0-5 /hpf (NONE SEEN); EPITHELIAL CELLS 0-5 /hpf (0-5); WHITE CELLS - URINE 0-5 /hpf (NEGATIVE)
[2019-10-06 06:10] LABS: RAPID PLASMA REAGIN Non Reactive (Non Reactive)
--- NOTE | 2019-10-06 15:00 | NUR ---
AMB ON UNIT, STEADY GAIT NOTED. REPORTS THAT HEADACHE HAS RESOLVED SINCE EATING. C/O VAGINAL AND PERINEAL SORENESS AND BURNING, 08/19. PERCOCET GIVEN PER ORDER. BACK TO ROOM AT THIS TIME. R HAND PIV D/C'D PER PT REQUEST WITH TIP INTACT, PT VERBALIZES UNDERSTANDING THAT IF IV ACCESS IS NEEDED, PIV WOULD HAVE TO BE RESTARTED, VERBALIZES UNDERSTANDING. BED IN LOW POSITION WITH SRUP X2. CALL LIGHT AND PHONE WITHIN REACH.
--- NOTE | 2019-10-06 17:08 | NUR ---
AMBULATORY TO N WITH DR. NGO TO SEE INFANT. C/O PERINEAL BURING, REQUESTS DERMAPLAST. DR. MATTSON PAGED WITH IMMEDIATE CALLBACK, ORDERS REC'D. WILL PROVIDE ONCE PT BACK TO ROOM.
--- NOTE | 2019-10-06 18:18 | NUR ---
PT REQUESTING MOTRIN, EXPLAINED THAT SHE HAD HAD TORADOL AND MOTRIN COULD NOT BE GIVEN AT THIS TIME THAT THERE HAD TO BE 6 HRS FROM LAST TORADOL. C/O HEADACHE AND BACKACHE, REPORTS THAT HEADACHE IMPROVES WHEN LAYING DOWN. REPORTS THAT HEADACHE WAS GONE FOLLOWING EATING AND PERCOCET DOSE. MEDS REVIEWED WITH PT, REQUESTS PERCOCET AND MOTRIN WHEN AVAILABLE. K-PAD PROVIDED PER PT REQUEST AND ORDER. INSTRUCTED ON USE. PT'S MOTHER CARING FOR AT THIS TIME. BED IN LOW POSITION WITH SRUP X2. CALL LIGHT AND PHONE WITHIN REACH. WILL CONTINUE TO MONITOR.
--- NOTE | 2019-10-06 19:20 | NUR ---
PATIENT AMBULATING IN THE HALLWAY
--- NOTE | 2019-10-06 19:45 | NUR ---
PATIENT AMBULATING BACK TO HER ROOM WITH HER MOTHER. NO DISTRESS NOTED.
[2019-10-06 20:01] VITALS: BP 150/81
--- NOTE | 2019-10-06 20:01 | NUR ---
SHIFT ASSESSMENT COMPLETED, SEE FLOWSHEET.
--- NOTE | 2019-10-06 21:21 | NUR ---
PATIENT SLEEPING WITH EYES CLOSED, RESPIRATIONS EVEN AND NON LABORED. NO DISTRESS NOTED. MOTHER REMAINS AT BEDSIDE FOR SUPPORT. WILL CONTINUE TO MONITOR
--- NOTE | 2019-10-06 22:00 | NUR ---
INFANT RETURNED TO ROOM VIA OPEN CRIB. ID BRACELET NUMBERS VERIFIED AND INFANT HANDED TO MOM TO FEED. BOTTLE AND NIPPLE SUPPLIED. NO NEEDS IDENTIFIED. WILL CONTINUE TO MONITOR
--- NOTE | 2019-10-06 22:39 | NUR ---
PATIENT AMBULATING IN HALLWAY TO GET ICE.
--- NOTE | 2019-10-06 22:43 | NUR ---
MEDICATION ADMINISTERED TO PATIENT PER REQUEST, SEE EMAR
--- NOTE | 2019-10-06 23:30 | NUR ---
PATIENT WALKING IN HALLWAY TO VENDING MACHINE. NO DISTRESS NOTED.
--- NOTE | 2019-10-07 00:45 | NUR ---
PATIENT SLEEPING QUIETLY IN BED, RESPIRATIONS EVEN AND NON LABORED. PT WOKE UPON THE DOOR CLOSING AND STATES THAT SHE DOESNT NEED ANYTHING.
--- NOTE | 2019-10-07 01:33 | NUR ---
PATIENT AMBULATING IN HALLWAY
--- NOTE | 2019-10-07 01:56 | NUR ---
INFANT TO ROOM VIA OPEN CRIB AT THIS TIME, ID VERIFIED.
--- NOTE | 2019-10-07 02:30 | NUR ---
PATIENT AMBULATING IN H ALLWAY
--- NOTE | 2019-10-07 04:10 | NUR ---
ROOM CHECK,PT RESTING QUIETLY WITH AT BEDSIDE IN OPEN CRIB. PTS MOTHER REMAINS AT BEDSIDE FOR SUPPORT.
--- NOTE | 2019-10-07 06:25 | NUR ---
PATIENT SLEEPING, EASILY AROUSED TO VERBAL. PT DENIES PAIN OR NEEDS AT THIS TIME
[2019-10-07 06:26] LABS: BASOPHILS 0.1 % (0-2); EOSINOPHILS 0.8 % (0-7); HEMATOCRIT 31.3 % (36.0-48.0); HEMOGLOBIN 10.2 g/dL (12-16); IMMATURE GRANULOCYTES 0.4 % (0-5); LYMPHOCYTES 23.3 % (15-50); MCH 29.7 pg (26.0-34.0); MCHC 32.6 g/dL (31.0-37.0); MEAN PLATELET VOLUME 10.9 fL (7.4-10.4); MONOCYTES 4.1 % (2-11); NEUTROPHILS 71.3 % (40-80); PLATELET COUNT 277 10x3/uL (130-400); RBC 3.44 10x6/uL (4.00-5.40); RDW 13.7 % (11.5-14.5); WBC 12.6 10x3/uL (4.8-10.8)
[2019-10-07 07:49] VITALS: BP 112/62
--- NOTE | 2019-10-07 07:49 | NUR ---
AM ASSESSMENT COMPLETED. VSS, AFEBRILE, RESP EVEN AND UNLABORED, LUNGS CTAB HEART RRR, ABD SOFT AND NONTENDER, FF AT U/2 AND MIDLINE, LOCHIA RUBRA LIGHT [place], DENIES CLOTS, NEGATIVE MARIVEL'S SIGN B LE, VOIDING WITHOUT DIFFICULTY, ZABALA FREELY, DOES REPORT AVERY THAT DOES NOT SEEM TO RESOLVE WITH IBUPROFEN ALONE. NO MEDS GIVEN SINCE LAST PM. ENCOURAGED PO INTAKE, AMBULATION IN ROOM/HALLS. VOICES UNDERSTANDING OF ALL INFORMATION DISCUSSED. WILL CONTINUE TO MONITOR.
--- NOTE | 2019-10-07 07:54 | NUR ---
PT C/O AVERY AND ACHING BACK PAIN, PRN MEDS PROVIDED AND CUP OF [place] PER REQUEST. CALL LIGHT IN EASY REACH OF PT, PT MOTHER AT PROVIDING SUPPORT. NO OTHER NEEDS VOICED AT THIS TIME. WILL CONTINUE TO MONITOR.
--- NOTE | 2019-10-07 08:30 | NUR ---
rounds completed, nad noted, resting left lateral postion. c/l in easy reach. will monitor.
--- NOTE | 2019-10-07 09:08 | NUR ---
pain reassessment completed, pt still reporting roche and neck pain that is worsened with sitting up and walking and improved when supine. paged anesthesia for consult; luz rivas crna will see pt today; relayd information to pt. pt states understanding.
--- NOTE | 2019-10-07 10:15 | NUR ---
PT AMBULATORY IN HALLS AND OFF UNIT FOR A BRIEF PERIOD OF TIME, THEN RETURNS TO UNIT, NAD NOTED, PT SMILES ON SEEING THIS RN IN HALLS. RESP EVEN AND UNLABORED, STATES "I'VE BEEN TRYING TO DRINK SOME COFFEE TO HELP WITH MY NECK PAIN". WILL CONTINUE TO MONITOR.
--- NOTE | 2019-10-07 11:12 | NUR ---
PT RECUMBENT IN BED, WASHCLOTH TO FOREHEAD, GRIMACING RELATES THAT HER AVERY IS BOTHERING HER NOW; RATES PAIN 6 OUT OF 10 ON NUMERIC PAIN SCALE. LIGHTS DIMMED AND REVIEWED NEXT AVAILABLE DOSE OF PRN MED; PT STATES AMENABLE TO PLAN OF CARE WRITTEN. WILL MONITOR FOR NOW; AWAIT RECOVERY ANALYST VISIT TO CHECK PT.
--- NOTE | 2019-10-07 11:32 | NUR ---
REPAGED ANESTHESIA ON-CALL, Paula MICHEL CRNA, TO DETERMINE ESTIMATED TIMEFRAME FOR CONSULT. ON RETURN CALL, Paula MICHEL CRNA STATES TO PAGE BACK UP ON-CALL SHE IS NOW UNABLE TO COME DOWN TO SEE PT. DR AG PAGED WITH IMMEDAITE CALL BACK. DR AG STATES TO BEGIN ORAL HYDRATION 1000ML IF PT CAN TOLERATE OTHERWISE WILL NEED IVF BOLUS OF 1000ML. RELAYED INFORMATION TO PT; PT PREFERS ORAL HYDRATION AND PROVIDED 500ML WATER TO DRINK WITH INSTRUCTIONS TO DRINK [address] ML [address] AG TO SEE PT 45 MIN OR SO. PT STATES UNDERSTANDING.
--- NOTE | 2019-10-07 12:12 | NUR ---
REPAGED DR AG, ORDER CLARIFICATION RECEIVED TO START IV AND ADMINISTER 1 LITER BOLUS OF NS NOW. RELAYED TO PT. PT STATES UNDERSTANDING.
--- NOTE | 2019-10-07 12:15 | NUR ---
IV RESTARTED TO RIGHT A/C X1 STICK, NS INFUSING WITHOUT DIFFICULTY AT BOLUS RATE PER DR AG INSTRUCTIONS. TOLERATES PROCEDURE WELL, SITE SECURED WITH CLEAR TAPE AND BIOOCCLUSIVE DRESSING. SITTING UP IN BED TO EAT LUNCH NOW.
--- NOTE | 2019-10-07 13:03 | NUR ---
DR AG AND Paula MICHEL, SYSTEM ADMIN COMPLETED EPIDURAL BLOODPATCH, PT REPORTING PAIN NOW 6/10 DOWN FROM 10/10 WHEN ASKED PRIOR TO PROCEDURE, PT ASSISTED TO SUPINE POSITION, TOLERATES PROCEDURE WELL. WILL CONTINUE TO MONITOR.
--- NOTE | 2019-10-07 14:11 | NUR ---
ROUNDS COMPLETED, PT MOTHER AT BS ASSISTING WITH CARE, PT REMAINS SUPINE WITH HOB ELEVATED 10 DEGREES, REPORTS PAIN 5-6/10 ON NUMERIC PAIN SCALE. LIGHTS DIMMED IN ROOM, SIDE RAILS UP X2, BED IN LOW POSIION, BED BRAKES LOCKED. WILL CONTINUE TO MONITOR.
--- NOTE | 2019-10-07 14:35 | NUR ---
PT REQUESTING PRN MOTRIN FOR NECK/BACK/HEAD PAIN RATED 4/10 ON NUMERIC PAIN SCALE, STATES HEADACHE IMPROVED BUT FEELS PAIN MORE IN BACK NOW. RESP EVEN AND UNLABORED, REVIEWED POC TO INCLUDE SUPINE POSITION WITH BRP. PT STATES UNDERSTANDING. WILL CONTINUE TO MONITOR.
--- NOTE | 2019-10-07 15:29 | NUR ---
ROUNDS COMPLETED, PT LYING LEFT LATERAL POSITION, HOB ELEVATED 10 DEGREES, RESTIGN WITH EYES CLOSED, RESP EVEN AND UNLABORED, C/L IN EASY REACH, NAD NOTED. CONTINUE TO MONITOR.
--- NOTE | 2019-10-07 17:22 | NUR ---
pt wakes from napping and states she is having worsened back pain and is concerned her roche may return. prn percocet given per pt request, assisted to sit on side of bed to eat dinner and encouraged to return to supine position after eating per anesthesia care guidelines after bloodpatch. pt states understanding. will continue to monitor.
--- NOTE | 2019-10-07 18:10 | NUR ---
ROUNDS COMPLETED, NAD NOTED. PT SMILING AND SUPINE IN BED, LIGHTS ON IN ROOM, RATES PAIN 3-[address] MATTSON INFORMED OF PT STATUS; NO NEW ORDERS RECEIVED.
--- NOTE | 2019-10-07 19:02 | NUR ---
BEDSIDE SHIFT REPORT COMPLETED WITH SARTHAK CHAPA TO ASSUME PATIENT CARE. PATIENT EATING DINNER FORM OUTSIDE THE FACILITY, WILL COME BACK FOR SHIFT ASSESSMENT.
--- NOTE | 2019-10-07 20:05 | NUR ---
PATIENT AMBULATING IN HALLWAY, REQUESTING MORE DERMOPLAST AND PADS. DERMOPLAST AND PADS PROVIDED. PATIENT DENIES OTHER NEEDS AT THIS TIME. WILL CONTINUE TO MONITOR.
[2019-10-07 20:55] VITALS: BP 131/76
--- NOTE | 2019-10-07 21:35 | NUR ---
PATIENT WALKING TO VENDING MACHINE WITH MOTHER
--- NOTE | 2019-10-07 21:42 | NUR ---
PATIENT AMBULATING BACK TO ROOM, NO NEEDS IDNETIFIED. WILL CONTINUE TO MONITOR
--- NOTE | 2019-10-07 22:12 | NUR ---
MOTRIN 600MG PO PER MD ORDERS AND PT REQUEST.
--- NOTE | 2019-10-07 22:16 | NUR ---
PERCOCET ADMINISTERED PER MD ORDERS AND PT REQUEST. SEE EMAR
--- NOTE | 2019-10-07 22:51 | NUR ---
ICE CREAM PROVIDED PER PT REQUEST, NO PAIN OR NEEDS IDENTIFIED AT THIS TIME. WILL CONTINUE TO MONITOR.
--- NOTE | 2019-10-07 23:19 | NUR ---
PATIENT AMBULATING IN HALLWAY WITH IN OPEN CRIB. STATES THAT SHE IS GOING OUTSIDE WITH HER MOM TO GET SOME FRESH AIR.
--- NOTE | 2019-10-08 | NUR ---
PATIENT BACK TO ROOM, DENIES NEEDS OR PAIN. WILL CONTINUE TO MONITOR.
--- NOTE | 2019-10-08 02:59 | NUR ---
PATIENT SLEEPING WITH EVEN RESPIRATIONS. NO DISTRESS NOTED, BED REMAINS LOCKED IN LOW POSITION, CALL CHENG AND TRAY TABLE IN REACH. MOTHER REMAINS AT BEDSIDE FOR SUPPORT. REMAINS IN NURSERY.
--- NOTE | 2019-10-08 04:14 | NUR ---
ADMINISTERED PERCOCET 5/325MG PO PER PT REQUEST. NO FURTHER NEEDS IDENTIFIED.
--- NOTE | 2019-10-08 07:25 | NUR ---
PT LYING TO LEFT SIDE IN BED. EYES CLOSED. RESP NON-LABORED. PT NOT DISTURBED TO ALLOW FOR REST. PT MOTHER ALSO IN ROOM WITH PT.
--- NOTE | 2019-10-08 08:30 | NUR ---
ROOM CHECK-PT LYING TO LEFT SIDE. EYES CLOSED. RESP NON-LABORED. PT NOT DISTURBED TO ALLOW FOR REST. PT MOTHER IN ROOM WITH PT.
--- NOTE | 2019-10-08 09:00 | NUR ---
PT MOTHER RETURNING TO ROOM FROM OFF UNIT. STATES PT IS STILL SLEEPING AND REQUESTS PT NOT BE DISTURBED UNTIL AWAKENED IF POSSIBLE.
[2019-10-08 09:08] VITALS: BP 131/78
--- NOTE | 2019-10-08 09:08 | NUR ---
PT PHYSICIAN PRIMARY CARE SPORTS MEDICINE LIGHT. THIS NURSE TO ROOM. PT LEANING UP IN BED. STATES "MY BACK IN HURTING REALLY BAD". ASSESSMENT COMPLETED. VSS. HRRR WITHOUT AUDIBLE MURMUR. BBS CLEAR. BS X 4. ABDOMEN SOFT/NON-DISTENDED. FUNDUS FIRM AT U/2. RUBRA LOCHIA SMALL AMT. PT DENIES PASSING CLOTS OR HEAVY BLEEDING. PT INSTRUCTED TO NOTIFY NURSE OF SOAKING PAD IN HOUR AND/OR PASSING CLOTS THE SIZE OF AN EGG OR BIGGER. PT VERBALIZES UNDERSTANDING. STATES PASSING GAS AND HAS HAD BM. NEG HOMANS' SIGN. PPP. NO EDEMA NOTED TO BLE. PT STATES BACK PAIN OF "7" ON 0-10 PAIN SCALE. STATES "I'VE BEEN LAYING ON IT". SR UP X 2. CALL LIGHT IN REACH.
--- NOTE | 2019-10-08 09:17 | NUR ---
PERCOCET 5/325 AND MOTRIN 600 MG GIVEN PO PER PT REQUEST FOR BOTH PAIN MEDS. PT INSTRUCTED ON MEDS. VERBALIZES UNDERSTANDING.
--- NOTE | 2019-10-08 11:00 | NUR ---
DR MATTSON VISITS WITH PT.
--- NOTE | 2019-10-08 11:15 | NUR ---
DR MATTSON AT [facility]. [facility] MAY ROOM IN.
--- NOTE | 2019-10-08 11:24 | NUR ---
DR MATTSON CALLS. T/O RECEIVED TO DISCHARGE PT TO ROOMING IN.
[2019-10-08] MEDS ORDERED: PERCOCET 5-3251 TAB PO (12:17)
[2019-10-08] MEDS ORDERED: IBUPROFEN600 MG PO (12:17)
--- NOTE | 2019-10-08 12:35 | NUR ---
DISCHARGE INSTRUCTIONS GIVEN TO PT. PT VERBALIZES UNDERSTANDING OF ALL INSTRUCTIONS. COPIES GIVEN TO PT. PT GIVEN RX FOR NORCO AND MOTRIN. PT ALSO GIVEN ROOMING IN POLICY/CONSENT. PT VERBALIZES UNDERSTANDING AND SIGNS FORM. PT PREPARES FOR DISCHARGE TO ROOMING IN.
--- NOTE | 2019-10-08 12:40 | NUR ---
PT AMBULATORY IN HALLS WITH MOTHER.
--- NOTE | 2019-10-08 14:19 | NUR ---
PT C/O H/A OF "9" ON 0-10 PAIN SCALE. PERCOCET 5/325 GIVEN PO ORDERED. PT INSTRUCTED ON MED. VERBALIZES UNDERSTANDING.
--- NOTE | 2019-10-08 14:23 | NUR ---
TDAP 0.5 ML GIVEN IM TO LEFT DELTOID. BANDAID TO SITE. MMR 0.5 ML GIVEN SQ TO LEFT OUTER ARM. BANDAID TO SITE. PT REQUESTED BOTH VACCINES TO BE GIVEN IN SAME ARM. PT SABA WELL.
--- NOTE | 2019-10-08 14:30 | NUR ---
PT DISCHARGED TO ROOMING IN-ROOM 1218.
== END 2019-10-08 14:30 | disposition home or self-care (01) | DRG 807 ==
LOC: D.LD 19:52
PROVIDERS: ADMIT Obstetrics & Gynecology; ATTEND Obstetrics & Gynecology
PROC: 10E0XZZ Delivery of Products of Conception, External Approach (ICD-10-PCS; principal; 2019-10-06)
DX: O75.89 Other specified complications of labor and delivery (principal); Z37.0 Single live birth; Z3A.38 38 weeks gestation of pregnancy; N20.0 Calculus of kidney